=== PATIENT | female | born 1995 | race African-American/Black ===

== ENCOUNTER 2017-02-05 02:54 | Emergency (ER) | payer SELFPAY ==
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
[2017-02-05 03:22] VITALS: BP 100/62; PULSE 96; TEMP 98; BMI 22.9
== END 2017-02-05 03:25 | disposition home or self-care (01) ==
LOC: EDBD → FER 02:54
DX: R45.4 Irritability and anger (principal); F32.9 Major depressive disorder, single episode, unspecified
CPT/HCPCS: 99281-25